=== PATIENT | female | born 2000 | race Caucasian/White ===

== ENCOUNTER 2023-07-22 22:13 | Emergency (ER) | payer OTHER ==
[~2023-07-22] VITALS: Ht 162.5 cm; Wt 99.8 kg
[2023-07-23] MEDS ORDERED: Ketorolac Tromethamine 60 MG/2 ML VIAL IM ONE (00:30)
[2023-07-23] MEDS ORDERED: NAPROSYN500 MG PO (00:36)
== END 2023-07-23 00:45 | disposition home or self-care (01) ==
LOC: ED 22:13
DX: S60.212A Contusion of left wrist, initial encounter (principal); S70.02XA Contusion of left hip, initial encounter; V80.010A Animal-rider injured by fall from or being thrown from horse in noncollision accident, initial encounter; Y93.89 Activity, other specified; Y92.89 Other specified places as the place of occurrence of the external cause; Y99.8 Other external cause status